=== PATIENT | female | born 1965 | race Caucasian/White ===

== ENCOUNTER 2017-07-06 10:27 | Emergency (ER) | payer OTHER ==
[~2017-07-06] VITALS: Ht 162.6 cm; Wt 68.0 kg
[~2017-07-06 10:27] MED LIST: ALBU90OI6; AMOCLA875 PO; ARIP10 PO; ATOR40TA; AZIT500 PO; Adult Low Dose81 MG; CEPH500 PO; CITA20 PO; Citalopram HBr40 MG; DEXA1; DICL25ER; DIPH50 PO; ESCI5 PO; ESTR.05PBW; GABA300; HYDACE5 PO; LEVSOD50; LORA1 PO; LORA2; MECL25 PO; NITR.6SL; ONDA8; OXYACE5T PO; Prilosec Otc20 MG PO; QUET100; QUET100 PO; QUET25; RABE20; RABE20 PO; SUMA25 PO; TIZANIDINE HCL2 MG; TRAZ100 PO; Zantac150 MG PO
[2017-07-06 11:09] LABS: BASOPHILS ABSOLUTE AUTO 0.05 K/mm3 (0.00-0.23); BASOPHILS PERCENT AUTO 0 % (0-2); EOSINOPHILS ABSOLUTE AUTO 0.07 K/mm3 (0.00-0.68); EOSINOPHILS PERCENT AUTO 1 % (0-6); Hemoglobin 14.7 g/dL (11.5-16.0); IMMATURE GRAN ABSOLUTE AUTO 0.03 K/mm3 (0.00-0.10); IMMATURE GRAN PERCENT AUTO 0 % (0-1); LYMPHOCYTES ABSOLUTE AUTO 4.76 K/mm3 (0.84-5.20); LYMPHOCYTES PERCENT AUTO 43 % (21-46); MONOCYTES ABSOLUTE AUTO 0.68 K/mm3 (0.16-1.47); MONOCYTES PERCENT AUTO 6 % (4-13); Mean Corpuscular HGB 34.6 pg (26.0-34.0); Mean Corpuscular HGB Conc 34.2 g/dL (31.5-36.5); Mean Corpuscular Volume 101 fL (80-100); Mean Platelet Volume 9.3 fL (9.1-12.4); NEUTROPHILS PERCENT AUTO 50 % (41-73); Platelet Count 308 K/mm3 (150-400); RDW Coefficient Variation 13.5 % (11.7-14.2); RDW Standard Deviation 50.6 fL (35.1-46.3); Red Blood Cell Count 4.25 M/mm3 (3.80-5.20); White Blood Cell Count 11.19 K/mm3 (4.00-11.30)
[2017-07-06 11:24] LABS: Alanine Aminotransfer (ALT/SGP 32 U/L (12-78); Albumin, Blood 3.9 g/dL (3.4-5.0); Alk Phos 92 U/L (50-136); Anion Gap 8 mmol/L (6-16); Aspartate Aminotrans (AST/SGOT 23 U/L (12-37); Bilirubin, Total 0.3 mg/dL (0.1-1.0); Blood Urea Nitrogen 8 mg/dL (8-24); Bun/Creatinine Ratio 9.4 (12.0-20.0); CO2, Blood 25 mmol/L (21-32); Calcium, Blood 9.5 mg/dL (8.5-10.1); Chloride, Blood 109 mmol/L (98-108); Creatinine, Blood 0.85 mg/dL (0.40-1.00); Glomerular Filtration Rate >60 (60-); Glucose, Blood 93 mg/dL (70-99); Potassium, Blood 4.1 mmol/L (3.5-5.5); Sodium, Blood 142 mmol/L (136-145); Total Protein, Blood 7.9 g/dL (6.4-8.2); Troponin I <0.015 ng/mL (0.000-0.040)
[2017-07-06] MEDS ORDERED: SUCR1 PO (12:58)
== END 2017-07-06 13:32 | disposition home or self-care (01) ==
LOC: ER 10:27
PROVIDERS: Emergency Medicine
DX: K21.9 Gastro-esophageal reflux disease without esophagitis (principal); R07.89 Other chest pain; F41.9 Anxiety disorder, unspecified; Z88.8 Allergy status to other drugs, medicaments and biological substances; Z88.5 Allergy status to narcotic agent; Z88.2 Allergy status to sulfonamides; Z79.899 Other long term (current) drug therapy; Z79.82 Long term (current) use of aspirin; F32.9 Major depressive disorder, single episode, unspecified; I25.2 Old myocardial infarction; E78.5 Hyperlipidemia, unspecified; E03.9 Hypothyroidism, unspecified; F17.200 Nicotine dependence, unspecified, uncomplicated
CPT/HCPCS: 36415; 71046; 80053; 83880; 84484; 85025; 93005; 93010; J2405; J3490; J7030

== ENCOUNTER → 2018-02-10 | Outpatient (CLI) | payer OTHER ==
[~2018-02-10] MED LIST changes: +SUCR1 PO
== END | disposition home or self-care (01) ==
LOC: LAB SHORT 10:29 → PLD 10:29
DX: L57.0 Actinic keratosis (principal)
CPT/HCPCS: 88305

== ENCOUNTER → 2018-11-29 | Outpatient (CLI) | payer OTHER ==
[2018-12-02 14:07] LABS: M-SPIKE, % Not Observed % (Not Observed); PROTEIN,TOTAL,URINE <4.0 mg/dL (Not Estab.)
== END | disposition home or self-care (01) ==
LOC: LAB SHORT 08:52 → LAB 08:52 → LAB FUT 11-13 16:45
PROVIDERS: Internal Medicine
DX: Z00.01 Encounter for general adult medical examination with abnormal findings (principal)
CPT/HCPCS: 81050; 84166; 86335

== ENCOUNTER → 2019-05-13 | Outpatient (CLI) | payer OTHER | END | disposition home or self-care (01) | LOC: LAB SHORT 19:41 → LAB 19:41 | DX: J02.9 Acute pharyngitis, unspecified (principal); R50.9 Fever, unspecified | CPT/HCPCS: 87081 ==

== ENCOUNTER 2020-03-30 08:05 | Day surgery (SDC) | payer OTHER ==
--- NOTE | 2020-03-30 08:41 | NUR ---
Ambulatory in Day Surgery. History, Chart, Medications and Allergies reviewed before start of procedure.Patient confirms NPO status and agrees with scheduled surgery. Pre-Op teaching done. Pt verbalizes understanding. PT alert and oriented.
--- NOTE | 2020-03-30 09:28 | NUR ---
Patient up to Ambulate independently. Gait steady. Discharge instructions reviewed with patient. Patient verbalizes understanding. Copy given to patient to take home.
== END 2020-03-30 09:30 | disposition home or self-care (01) ==
LOC: CT 08:05 → ORD 08:05
DX: R07.9 Chest pain, unspecified (principal); J44.9 Chronic obstructive pulmonary disease, unspecified; R06.00 Dyspnea, unspecified; E78.00 Pure hypercholesterolemia, unspecified; E78.1 Pure hyperglyceridemia; E03.9 Hypothyroidism, unspecified; I10 Essential (primary) hypertension; Z88.5 Allergy status to narcotic agent; Z88.2 Allergy status to sulfonamides; Z88.1 Allergy status to other antibiotic agents; Z88.8 Allergy status to other drugs, medicaments and biological substances
CPT/HCPCS: 75574; Q9967

== ENCOUNTER 2021-07-01 09:48 | Day surgery (SDC) | payer OTHER ==
[~2021-07-01] VITALS: Ht 162.6 cm; Wt 65.9 kg
== END 2021-07-01 12:43 | disposition home or self-care (01) ==
LOC: ORSCSDS 09:48
PROVIDERS: Internal Medicine Gastroenterology
PROC: 0D757ZZ Dilation of Esophagus, Via Natural or Artificial Opening (ICD-10-PCS; 2021-07-01)
PROC: 0DB58ZX Excision of Esophagus, Via Natural or Artificial Opening Endoscopic, Diagnostic (ICD-10-PCS; principal; 2021-07-01 11:15)
DX: R13.14 Dysphagia, pharyngoesophageal phase (principal); J44.9 Chronic obstructive pulmonary disease, unspecified; K22.2 Esophageal obstruction; K44.9 Diaphragmatic hernia without obstruction or gangrene; K59.00 Constipation, unspecified; I25.10 Atherosclerotic heart disease of native coronary artery without angina pectoris; G47.30 Sleep apnea, unspecified; E11.9 Type 2 diabetes mellitus without complications; Z79.82 Long term (current) use of aspirin; Z79.899 Other long term (current) drug therapy
CPT/HCPCS: 88305; J2704; J7120

== ENCOUNTER → 2022-08-11 | Outpatient (CLI) | payer OTHER ==
[2022-08-11 13:22] LABS: BASOPHILS ABSOLUTE AUTO 0.03 K/mm3 (0.00-0.23); BASOPHILS PERCENT AUTO 0 % (0-2); EOSINOPHILS ABSOLUTE AUTO 0.05 K/mm3 (0.00-0.68); EOSINOPHILS PERCENT AUTO 0 % (0-6); Hematocrit 42.4 % (33.0-51.0); Hemoglobin 14.7 g/dL (11.5-16.0); IMMATURE GRAN ABSOLUTE AUTO 0.05 K/mm3 (0.00-0.10); IMMATURE GRAN PERCENT AUTO 0 % (0-1); LYMPHOCYTES ABSOLUTE AUTO 4.33 K/mm3 (0.84-5.20); LYMPHOCYTES PERCENT AUTO 34 % (21-46); MONOCYTES PERCENT AUTO 9 % (4-13); Mean Corpuscular HGB 34.6 pg (26.0-34.0); Mean Corpuscular HGB Conc 34.7 g/dL (31.5-36.5); Mean Corpuscular Volume 100 fL (80-100); Mean Platelet Volume 9.3 fL (9.1-12.4); NEUTROPHILS ABSOLUTE AUTO 7.16 K/mm3 (1.96-9.15); NEUTROPHILS PERCENT AUTO 56 % (41-73); Platelet Count 393 K/mm3 (150-400); RDW Coefficient Variation 13.4 % (11.7-14.2); RDW Standard Deviation 49.3 fL (35.1-46.3); Red Blood Cell Count 4.25 M/mm3 (3.80-5.20); White Blood Cell Count 12.72 K/mm3 (4.00-11.30)
[2022-08-11 13:36] LABS: Albumin, Blood 3.9 g/dL (3.4-5.0); Albumin/Globulin Ratio 1.1 (0.8-1.8); Bilirubin, Total 0.4 mg/dL (0.1-1.0); Calcium, Blood 9.7 mg/dL (8.5-10.1); Globulin, Blood 3.7 g/dL (2.2-4.0); Potassium, Blood 3.9 mmol/L (3.5-5.5); Total Protein, Blood 7.6 g/dL (6.4-8.2)
== END ==
LOC: LAB SHORT 13:17 → LAB 13:17
PROVIDERS: Physician Assistant
DX: R07.9 Chest pain, unspecified (principal)
CPT/HCPCS: 80053; 82150; 83690; 84484; 85025; 85379

== ENCOUNTER 2023-04-17 06:06 | Day surgery (SDC) | payer BC, OTHER ==
[~2023-04-17] VITALS: Ht 162.6 cm; Wt 57.1 kg
[~2023-04-17 06:06] MED LIST changes: +Ativan1 MG PO; +FENO160 PO; +OMEP20ER PO
[2023-04-17] MEDS ORDERED: CeFAZolin Sodium 2,000 MG VIAL ONE (06:23)
[2023-04-17] MEDS ORDERED: NS 1,000 ML IV ONE (06:23)
[2023-04-17] MEDS ORDERED: NS 50 ML IV ONE (06:23)
[2023-04-17] MEDS ORDERED: Lactated Ringer's 1,000 ML IV ONE (06:39)
[2023-04-17] MEDS ORDERED: Premarin0.3 MG PO (06:42)
[2023-04-17] MEDS ORDERED: Ipratropium/Albuterol SulF 2.5-0.5MG/3 ML Amp ONE (06:49)
[2023-04-17] MEDS ORDERED: Citric Acid/Sodium Citrate 30 ML BTL ONE (06:49)
[2023-04-17] MEDS ORDERED: propofoL 20 ML IV ONE (07:13)
[2023-04-17] MEDS ORDERED: Glycopyrrolate 0.2 MG/ML 5ML VIAL ONE (07:13)
[2023-04-17] MEDS ORDERED: Midazolam HCl 1MG / ML 2ML Vial ONE (07:14)
[2023-04-17] MEDS ORDERED: Ropivacaine 0.5% HCl/Pf 5 MG/ML 20ML VIAL ONE (07:18)
[2023-04-17] MEDS ORDERED: Ketamine HCL 10 MG/ML 5ML SYR ONE (07:24)
[2023-04-17] MEDS ORDERED: FentaNYL Citrate 50 MCG/ML 2 ML Injection ONE ×2 (07:56→09:30)
[2023-04-17] MEDS ORDERED: Ondansetron HCl 2 MG / ML 2ML Vial ONE (08:01)
[2023-04-17] MEDS ORDERED: Dexamethasone Sod Phos 10 MG/ML 1ML VIAL ONE (08:01)
--- NOTE | 2023-04-17 08:18 | NUR ---
04/17/23 0818 Keli Treviño PATIENT LAYING LATERAL LEFT SIDE DOWN ON BALL BAG WITH TWO SAFETY STRAPS WITH GEL PAD UNDER, PILLOW PLACED BETWEEN LEGS, GEL PAD UNDER LEFT FOOT AND BETWEEN LEFT AND RIGHT FEET, PILLOW PLACED BETWEEN ARMS WITH SAFETY STRAP TO SECURE ARMS TO ARMBOARD.
[2023-04-17] MEDS ORDERED: Phenylephrine HCl 10mg/ml 1 ml Vial ONE (08:31)
[2023-04-17] MEDS ORDERED: Ketorolac Tromethamine 30mg Vial ONE (08:42)
[2023-04-17 09:47] VITALS: BP 119/67
[2023-04-17] MEDS ORDERED: OxyCODONE HCL 5 MG TAB ONE (10:13)
== END 2023-04-17 10:35 | disposition home or self-care (01) ==
LOC: ORSCSDS 06:06
PROVIDERS: Orthopaedic Surgery
PROC: 0MBL0ZZ Excision of Right Hip Bursa and Ligament, Open Approach (ICD-10-PCS; principal; 2023-04-17 07:30)
PROC: 0LMJ0ZZ Reattachment of Right Hip Tendon, Open Approach (ICD-10-PCS; principal; 2023-04-17 07:30)
DX: M70.61 Trochanteric bursitis, right hip (principal); E03.9 Hypothyroidism, unspecified; J44.9 Chronic obstructive pulmonary disease, unspecified; Z87.891 Personal history of nicotine dependence; K21.9 Gastro-esophageal reflux disease without esophagitis; E78.5 Hyperlipidemia, unspecified; F41.9 Anxiety disorder, unspecified; F32.A Depression, unspecified; Z79.899 Other long term (current) drug therapy
CPT/HCPCS: A9270; C1713; J0690; J1100; J1885; J2250; J2371; J2405; J2704; J2795; J3010; J7030

== ENCOUNTER 2023-10-23 07:29 | Day surgery (SDC) | payer BC, OTHER ==
[2023-10-23] VITALS (12 sets, daily range): BP systolic 111–156; BP diastolic 57–108
[~2023-10-23] VITALS: Ht 162.6 cm; Wt 60.6 kg
[~2023-10-23 07:29] MED LIST changes: +Lactated Ringer's 1,000 ML IV SCH; +Premarin0.3 MG PO; +propofoL 20 ML IV ONE
--- NOTE | 2023-10-23 08:12 | NUR ---
Ambulatory in Day Surgery History, Chart, Medications and Allergies reviewed before start of procedure.Lungs clear T/O to Auscultation. Patient confirms NPO status and agrees with scheduled surgery. Patient States Post-Procedure ride home has been arranged.
--- NOTE | 2023-10-23 09:02 | NUR ---
10/23/23 0902 Temi Olsen History, Chart, Medications and Allergies reviewed before start of procedure. Patient confirms NPO status and agrees with scheduled surgery. HISTORY, CHART, MEDICATIONS AND ALLERGIES REVIEWED BEFORE START OF PROCEDURE. PATIENT CONFIRMS NPO STATUS AND AGREES WITH SCHEDULED PROCEDURE. 3-LEAD EKG REVIEWED WITH PHYSICIAN PRIOR TO START OF PROCEDURE. MONITOR INTACT WITH CONTINUOUS PULSE OXIMETRY,CAPNOGRAPHY, 3-LEAD EKG, INTERMITTENT BP. SUPPLEMENTAL O2 TO BE TITRATED THROUGHOUT PROCEDURE TO MAINTAIN O2 SATURATION ABOVE 90%. PATIENT DETERMINED TO BE ASA APPROPRIATE FOR PROPOFOL SEDATION PRIOR TO START OF PROCEDURE BY DR. HENDERSON. MALLAMPATI CLASS 1 AIRWAY: COMPLETE VISULATIZATION OF THE SOFT PALATE.
--- NOTE | 2023-10-23 09:19 | NUR ---
PT TO DAY SURGERY STEP DOWN FROM EGD WITH DILATION. BEDSIDE REPORT RECEIEVED. PT IS AWAKE, ALERT AND ORIENTED; ABLE TO MOVE SELF IN BED. VSS. PT SLEEPY, HAS NO COMPLAINTS.
--- NOTE | 2023-10-23 09:36 | NUR ---
DR HENDERSON AT BEDSIDE GOING OVER EGD/DILATION RESULTS/PICUTRES AND DISCHARGE INSTRUCTIONS. Discharge instructions reviewed with patient. Patient verbalizes understanding. Copy given to patient to take home. Patient States Post-Procedure ride home has been arranged.
--- NOTE | 2023-10-23 09:37 | NUR ---
PT TOLERATING PO FLUIDS WELL
--- NOTE | 2023-10-23 09:48 | NUR ---
Discharged via wheelchair to private car for ride home.
== END 2023-10-23 09:49 | disposition home or self-care (01) ==
LOC: ORSCMMR 07:29 → ORD 09:00 → ORSCMMR 09:00
PROVIDERS: Internal Medicine Gastroenterology
PROC: 0DJ08ZZ Inspection of Upper Intestinal Tract, Via Natural or Artificial Opening Endoscopic (ICD-10-PCS; 2023-10-23)
PROC: 0D757ZZ Dilation of Esophagus, Via Natural or Artificial Opening (ICD-10-PCS; principal; 2023-10-23 09:00)
DX: R13.10 Dysphagia, unspecified (principal); J44.9 Chronic obstructive pulmonary disease, unspecified; K21.9 Gastro-esophageal reflux disease without esophagitis; K59.00 Constipation, unspecified; F17.210 Nicotine dependence, cigarettes, uncomplicated; Z79.899 Other long term (current) drug therapy
CPT/HCPCS: J2704; J7120

== ENCOUNTER 2025-01-23 06:36 | Day surgery (SDC) | payer BC, OTHER ==
[~2025-01-23] VITALS: Ht 162.6 cm; Wt 62.1 kg
[~2025-01-23 06:36] MED LIST changes: -Lactated Ringer's 1,000 ML IV SCH; -propofoL 20 ML IV ONE
[2025-01-23] MEDS ORDERED: Ondansetron HCl 2 MG / ML 2ML Vial ONE (07:40)
--- NOTE | 2025-01-23 09:14 | NUR ---
01/23/25 0914 Antoine Mcclain ONLY PARTIAL OF VSS PRINTED. PT'S VITALS STABLE ALL THROUGH PROCEDURE.
[2025-01-23 09:34] VITALS: BP 115/63
== END 2025-01-23 09:15 | disposition home or self-care (01) ==
LOC: ORSCSDS 06:36
PROVIDERS: Specialist
PROC: 0DBP8ZX Excision of Rectum, Via Natural or Artificial Opening Endoscopic, Diagnostic (ICD-10-PCS; principal; 2025-01-23 08:00)
PROC: 0D758ZZ Dilation of Esophagus, Via Natural or Artificial Opening Endoscopic (ICD-10-PCS; principal; 2025-01-23 08:00)
PROC: 0DBL8ZX Excision of Transverse Colon, Via Natural or Artificial Opening Endoscopic, Diagnostic (ICD-10-PCS; principal; 2025-01-23 08:00)
PROC: 0DB68ZX Excision of Stomach, Via Natural or Artificial Opening Endoscopic, Diagnostic (ICD-10-PCS; principal; 2025-01-23 08:00)
DX: R13.10 Dysphagia, unspecified (principal); K21.9 Gastro-esophageal reflux disease without esophagitis; Z12.11 Encounter for screening for malignant neoplasm of colon; D12.3 Benign neoplasm of transverse colon; D12.8 Benign neoplasm of rectum; J44.9 Chronic obstructive pulmonary disease, unspecified; I25.10 Atherosclerotic heart disease of native coronary artery without angina pectoris; Z86.73 Personal history of transient ischemic attack (TIA), and cerebral infarction without residual deficits; E78.5 Hyperlipidemia, unspecified; I10 Essential (primary) hypertension; I47.10 Supraventricular tachycardia, unspecified; Z79.02 Long term (current) use of antithrombotics/antiplatelets; Z79.899 Other long term (current) drug therapy
CPT/HCPCS: 88305; 88341; 88342; C1769; J2405; J2704; J7120